=== PATIENT | female | born 1955 | race Caucasian/White ===

== ENCOUNTER 2017-02-09 18:05 | Inpatient (IN) | payer OTHER ==
[~2017-02-09] VITALS: Ht 162.6 cm; Wt 97.7 kg
[~2017-02-09 18:05] MED LIST: BIOT10004 PO; CHOL10008 PO; ENAL10TA PO; ESTR1TAB24 PO; HYDR25TA4 PO; LOVA40TA PO; MULT-1018 PO; OMEP20CA11 PO; UBID300C PO; VIT-10 PO; ZLP5T PO
[2017-02-09 18:17] VITALS: BP 109/75; PULSE 96; RESP 20; O2SAT 100
[2017-02-09] MEDS ORDERED: ATOR20TA PO (18:25)
--- NOTE | 2017-02-09 18:38 | ED.REPORT ---
HPI-Abd Pain F 40 and Over Date of Service February 09, 2017 ED Provider: Dr. Tomer Estrada MD A 61 year old female with history of diverticular hemorrhage s/p bowel resection , small bowel obstruction, type II diabetes mellitus and hypertension presents to the ED with rectal bleeding that began at 1000 this morning. She has been passing dark, maroon stool every 2 hours since onset. She reports st least 4-5 episodes of large blood clots passing. Patient denies any other symptoms at this time. She does not currently see a GI specialist. Nursing Notes Stated Complaint: GI BLEED Chief Complaint: Female Abdominal Pain Nursing Notes Reviewed: Yes Allergies: Coded Allergies: hydromorphone (Verified Allergy, Severe, 03/15/16) heart race and SOB morphine (Verified Allergy, Severe, 03/15/16) "makes me crazy" oxycodone (Verified Adverse Reaction, Severe, night terrors, 03/14/16) Scheduled Atorvastatin (Lipitor) 20 Mg Tablet 20 MG PO DAILY Biotin (Biotin) 1,000 Mcg Tab.chew 1,000 MCG PO DAILY Cholecalciferol (Vitamin D3) (Vitamin D3) 1,000 Unit Tab.chew 1,000 UNIT PO DAILY Enalapril Maleate (Enalapril Maleate) 10 Mg Tablet 10 MG PO DAILY Estradiol (Estradiol) 1 Mg Tablet 1 MG PO DAILY Hydrochlorothiazide (Hydrochlorothiazide) 25 Mg Tablet 25 MG PO DAILY Multivitamin (Multi Vitamin Daily) 1 Each Tablet 1 EACH PO DAILY Omeprazole (Omeprazole) 20 Mg Capsule.dr 20 MG PO BID Ubidecarenone (Co Q-10) 300 Mg Capsule 300 MG PO DAILY Scheduled PRN Zolpidem (Ambien) 5 Mg Tablet 5 MG PO HS PRN PRN For Insomnia General Time Seen by MD: 18:38 Chief Complaint Rectal bleeding Hx Obtained From: Patient Arrived By: Walk-in Sudden in Onset?: Yes Onset Occurred: 5 - 8 hours ago (1000) Symptom Duration: Since onset Progression since Onset: Constant Pertinent Negative: Pt denies other symptoms Status: Negative - ED urine HCG Recent Healthcare: No recent doctor visit, No recent hospitalization Risk Factors )( AAA Risk Stratification Hypertension Risk factors reviewed Past Medical History Past Medical History Hypertension Type II diabetes Diverticulitis Past Surgical History Bowel resection p ventral hernia Abdominal hernia gallbladder Tonsillectomy Hysterectomy Family History noncontributory Smoking History Never Smoker Social History Alcohol Use: Denies alcohol use Drug Use: Denies drug use Other Social History: Good social support, Local resident Ambulatory Status Independent Review of Systems Rectal bleeding Pt denies any other symptoms at this time. GI: Reports: Hematochezia (Maroon BM) Complete sys rev & neg: except as marked. Physical Exam Vital Signs Vital Signs (First) Date Time Temp Pulse Resp B/P Pulse Ox O2 Delivery O2 Flow Rate FiO2 02/09/17 18:17 36.2 96 20 109/75 100 Room Air 02/09/17 22:08 2 Initial VS: Reviewed Head / Eyes: Atraumatic, Normocephalic, PERRL Neck: Supple, Non-tender, Full range of motion Extremities: Vascular intact, Neuro intact, No swelling, No tenderness Skin: Warm, Dry, No cyanosis Neurologic: Alert, Oriented, Nonfocal Psychiatric: Mood/affect normal, Behavior normal, Normal thought content General/Constitutional: Awake, Alert Distress / Hydration: Positive: Distress moderate Respiratory / Chest: Atraumatic, Breath sounds NL, Breath sounds = bilat, No respiratory distress Cardiovascular: Heart rate NL, Regular rhythm, Heart sounds NL Abdomen: Atraumatic, Soft, Non-tender Back: Atraumatic, Inspection NL Rectum / Perineum: Atraumatic RECTUM: Large amount of maroon present Interpretation & Diagnostics Lab Results Interpretation Result Diagram: 02/09/17 2210 02/09/17 1835 Test 02/09/17 18:25 02/09/17 18:35 02/09/17 22:10 Hold Serrano Top Tube Received (Received) White Blood Count 7.4th/mm3 (3.8-10.1) Red Blood Count 4.61mil/mm3 (3.90-5.20) Mean Corpuscular Volume 84.8fL (81-100) Mean Corpuscular Hemoglobin 28.0pg (27.0-35.0) Mean Corpuscular Hemoglobin Concent 33.0% (32.0-37.0) Red Cell Distribution Width 13.5% (12.3-15.4) Platelet Count 299bil/L (150-400) Neutrophils (%) (Auto) 61.6% (40-74) Lymphocytes (%) (Auto) 30.6% (14-46) Monocytes (%) (Auto) 6.0% (4-12) Eosinophils (%) (Auto) 1.6% (0-5) Basophils (%) (Auto) 0.1% (0-3) Prothrombin Time 11.7sec (8.1-12.5) Prothromb Time International Ratio 1.09ratio Sodium Level 134mEq/L (134-144) Potassium Level 3.9mEq/L (3.5-5.2) Chloride Level 94mEq/L (97-108) Carbon Dioxide Level 24mmol/L (18-29) Blood Urea Nitrogen 16mg/dL (8-27) Creatinine 0.60mg/dL (0.57-1.00) Estimat Glomerular Filtration Rate 145mL/min (>59) Glucose Level 136mg/dL (60-99) Calcium Level 9.5mg/dL (8.5-10.1) Magnesium Level 2.0mg/dL (1.6-2.6) Total Bilirubin 0.7mg/dL (0.0-1.2) Aspartate Amino Transf (AST/SGOT) 19U/L (0-50) Alanine Aminotransferase (ALT/SGPT) 21U/L (0-32) Alkaline Phosphatase 59U/L (25-165) Troponin T < 0.010ug/L (0.0-0.011) Total Protein 7.6g/dL (6.4-8.4) Albumin 3.8g/dL (3.4-5.0) Hemoglobin 10.6g/dL (12.0-15.6) Hematocrit 32.9% (35.0-46.0) ECG Interpretation ECG Interpretation: Sinus Rhythm Rate 71 Time: 19:02 Interpreted by: ED physician Re-Eval/Medical Decision Med Decision/Clinical Course 61-year-old female with history of diverticular hemorrhage presents with acute most likely lower gastrointestinal hemorrhage. She has had multiple bloody bowel movements today. She had at least 5 bloody bowel movements in the emergency department. The stool color was maroon however and not bright red blood. She did have a vagal episode where her heart rate dropped to the 30s and should very soft blood pressure. She was resuscitated with fluids and atropine. We had blood products at the bedside. I was in close communication with gastroenterology. Plan for ICU admission for close observation, serial H&H 's, transfusion if needed anticipate colonoscopy. Re-Evaluation/Progress #1: Time of Eval: 19:43 Patient Status: Condition improved Re-Evaluation/Progress Note: Patient is She is informed of her lab results and diagnosis. All of the patient's questions are addressed. She understands and agrees with the treatment plan to admit. Re-Evaluation/Progress #2: Time of Eval: 21:51 Patient Status: Condition worsened Re-Evaluation/Progress Note: Patient has a vagal episode. Symptoms have worsened but she denies any pain. Bradycardiac and hypotensive upon recheck. Atropine administered - Bounding radial pulse. Patient has had 3 more BM since arrival to the ED. Consultation #1: Referral / Consult Name: Rajni Goldsmith MD Consulted With: Surgeon Call Returned at: 19:25 Salvage Cutter: Agrees with eval, Agrees with plan Consultation #2: Referral / Consult Name: Cullen Nix MD Call Returned at: 19:42 Salvage Cutter: Agrees with eval, Agrees with plan Note: GI specialist Consultation #3: Referral / Consult Name: Ct Gordon DO Consulted With: Hospitalist Call Returned at: 21:01 Salvage Cutter: Will see patient, Agrees with eval, Agrees with plan, Accepts admit Note: Recommends CCU 2223: Discuss possible transfer Consultation #4: Referral / Consult Name: Cullen Nix MD Consulted With: Surgeon Call Returned at: 21:54 Salvage Cutter: Will see patient, Agrees with eval, Agrees with plan Counseled Regarding: Diagnosis, Lab results, Need for admission Discharge & Departure Primary Impression: Acute lower GI bleeding Additional Impressions: Hemorrhagic shock Vagal autonomic bradycardia Disposition: ADMITTED TO HOSPITAL Discharge Condition All VS Reviewed: Yes Condition: Stable Referrals: Nigel Lees MD (PCP) Crit Care Except Billable Proc Time Spent: 165-194 minutes Services Performed: Patient management by me, Time spent at bedside, Reviewing test results, Reviewing imaging, Discussing patient care, Documentation in record, Time with fam/surrogate, Other Critical Care Notes: fluids, atropine Scribe Attestation Portions of this note were transcribed by January Kebede. I, Dr. Estrada personally performed the history, physical exam and medical decision-making; I reviewed and confirmed the accuracy of the information in the transcribed note. Signed by: Ramona Cespedes, 02/09/17 2076. copies to: Nigel Lees MD, Todd P DO February 09, 2017 18:38 JANUARY KEBEDE February 09, 2017 18:40
[2017-02-09] MEDS ORDERED: 0.9% Sodium Chloride 1,000 ML IV ONE (18:39)
[2017-02-09] MEDS ORDERED: Pantoprazole Inj 80 MG, Pharmacy To Mix 1 EA in 0.9% Sodium Chloride 80 ML IV ONE ×2 (18:40)
[2017-02-09 18:51] LABS: BASOPHILS % (AUTO) 0.1 % (0-3); EOSINOPHILS % (AUTO) 1.6 % (0-5); Mean Corpuscular Volume 84.8 fL (81-100); NEUTROPHILS % (AUTO) 61.6 % (40-74); Platelet Count 299 bil/L (150-400)
[2017-02-09 19:06] LABS: INR 1.09 ratio
[2017-02-09 19:24] LABS: TROPONIN T < 0.010 ug/L (0.0-0.011)
[2017-02-09 19:44] VITALS: BP 119/62; PULSE 63; RESP 24; O2SAT 100
[2017-02-09 21:00] VITALS: BP_SYST 111; BP_SYST 84; BP_DIAS 39; BP_DIAS 59; PULSE 66; RESP 19; O2SAT 98
[2017-02-09] MEDS ORDERED: Ondansetron 2 mg/mL 2 mL Inj IVPUSH PRN (21:15)
[2017-02-09] MEDS ORDERED: Alum-Mag Hydrox-Simeth 30 mL Suspension PO PRN (21:15)
[2017-02-09] MEDS ORDERED: Polyethylene Glycol (PEG) 17 Gm Powder PO PRN (21:15)
[2017-02-09] MEDS ORDERED: Senna-Docusate 8.6-50 mg Tablet PO PRN (21:15)
[2017-02-09] MEDS ORDERED: PEG/Electrolytes 4,000 mL Solution PO ONE (21:15)
[2017-02-09] MEDS ORDERED: Atropine 1 mg/10 mL (Code) Syringe ONE ×2 (21:49→21:57)
[2017-02-09] MEDS ORDERED: EPINEPHrine 0.1 mg/mL 10 mL Syringe ONE (21:54)
[2017-02-09 22:08] VITALS: BP 112/63; PULSE 93; RESP 24; O2SAT 97
[2017-02-09 23:25] VITALS: BP 94/41; PULSE 86; RESP 18; O2SAT 99
[2017-02-10] VITALS (13 sets, daily range): BP systolic 103–124; BP diastolic 52–69; PULSE 60–86; RESP 14–17; O2SAT 96–100
--- NOTE | 2017-02-10 00:02 | PCM.HPMED ---
Subjective Date of Service February 10, 2017 Primary Provider: Admitting Physician: Ct Gordon DO Primary Care Physician: Nigel Lees MD Attending Physician: Ct Gordon DO Admit Status: From the Emergency Department Chief Complaint: blood in stool History of Present Illness: 61yoF with past medical history of PUD, diverticular disease s/p hemicolectomy for diverticular rupture, DM2, GERD admitted with persistent blood in stool and acute blood loss anemia Patient states that she was in her normal state of health when she began having mild abdominal cramps which felt as thought she needed to pass stool. She went to the bathroom and noticed bright red blood in the toilet bowl. She continued to have BRBPR x3 with passing of blood clots (every 2 hours) and was brought into the ED for further evaluation where she continued to have more hematochezia. While in the ED she also had a bradycardic event associated with drop in blood pressure at which time she was given atropine. In addition to abdominal cramping patient endorses lightheadedness and dizziness primarily with position changes however denies chest pain, chest tightness, dyspnea, changes in urination. 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 Previous history includes PUD as well as prior ruptured diverticulum requiring hemicolectomy. Recent medication changes include increase of meloxicam which has been taking PRN. She currently does not have a GI physician as an outpatient. Dr. Nix was consulted and agreed to see patient following admission 02/10/2017. Review of Systems: Complete review of systems obtained. Positive as per HPI otherwise negative Allergies Coded Allergies: hydromorphone (Verified Allergy, Severe, 03/15/16) heart race and SOB morphine (Verified Allergy, Severe, 03/15/16) "makes me crazy" oxycodone (Verified Adverse Reaction, Severe, night terrors, 03/14/16) Home Medications ASA Acetaminophen Meloxicam Lipitor Omeprazole Enalapril HCTZ Multivitamin Coq10 Vit D Eye vitamins Biotin Estrace PMH 1. Hypertension 2. Hypercholesterolemia 3. GERD 4. Diet controlled diabetes 5. Diverticular disease s/p hemicolectomy 6. Macular degeneration 7. Ventral hernia s/p repair 8. PUD Surgical History Ventral hernia repair in 2013 Cholecystectomy Tonsillectomy Hysterectomy Appendectomy Hemicolectomy 2005 Incarcerated hernia Family History No family history of GI disease, GIB Social History Occupation: Nurse Hx Alcohol Use: No Hx Substance Use: No Hx Tobacco Use: No Smoking Status: Never Smoker Living Arrangement: with Family Exam Vital Signs Vital Sign - Last Date Time Temp Pulse Resp B/P Pulse Ox O2 Delivery O2 Flow Rate FiO2 02/09/17 23:25 86 18 94/41 99 Nasal Cannula 2 02/09/17 18:17 36.2 Intake and Output 02/09/17 02/09/17 02/10/17 Cumulative From/Thru 15:00 23:00 07:00 02/09/17 18:17 - 02/09/17 19:05 Intake Total 1000 ml 1000 ml Balance 1000 ml 1000 ml Intake IV Total 1000 ml 1000 ml Exam General: Alert and oriented x3, no acute distress Eyes: PERRLA, Scleral Anicteric Mouth: Mouth Normal, Mucous Membranes Moist/[place] Neck: Supple, no Thyromegaly, trachea central. Pulmonary: clear to auscultation bilaterally, no rhonchi, wheezes or rales, good inspiratory effort Cardiovascular: Normal S1, Normal S2, No Murmurs/Rubs/Gallops, Regular Rate/ Rhythm, (No JVD, no peripheral edema) Pulses: Radial (present and equal), Dorsalis Pedi (present and equal) GI: Soft, Non-tender, Non-distended, Normoactive bowel tones. Musculoskeletal: no joint edema or erythema Extremities: No edema, no cyanosis, no clubbing. Skin: No rashes. Warm and dry, no erythematous areas Neurological: CN grossly intact Lymphatic: Lymph nodes Cervical and Axillary not palpable. Psych: normal affect Lab and Diagnostics Result Diagram: 02/09/17 2210 02/09/17 1835 Assessment & Plan 61yoF with past medical history of PUD, diverticular disease s/p hemicolectomy for diverticular rupture, DM2, GERD admitted with persistent blood in stool and acute blood loss anemia Acute blood loss anemia, acute, POA, ongoing -secondary to GIB -threshold for transfusion hgb 7 Gastrointestinal bleed, acute, POA, ongoing -likely lower GI bleed however brisk upper GI not ruled out -GI consulted, will see patient in am with plans to complete colonoscopy, recs appreciated -continue to monitor H&H q2x1 then q4hr -NPO, mIVF, pantoprazole bolus and gtt -threshold to transfuse hgb7 Bradycardia, acute, POA -bradycardic event following presentation -given atropine x1 with improvement of HR -continue to monitor of tele -atropine at bedside -repeat EKG PRN HTN, chronic -patient hypotensive following admission -hold home blood pressure medications until clinically stable Diet controlled DM - ISS while inpatient, low correctional - HgA1C pending, added on to admit labs GERD -pantoprazole bolus and gtt as above -continue home PPI when taking PO Hypercholesterolemia -hold home medications while NPO VTE Mechanical Devices: Intermittant Pneumatic CD (heparin / enoxaparin contraindicated in the setting of GI bleed) Resuscitation Status: CPR: Attempt Resuscitation Time spent Patient meeting inpatient status with admission expected to be greater than 2 days given severity of disease. Ct Gordon DO February 10, 2017 00:02
--- NOTE | 2017-02-10 03:13 | NUR ---
CCU admit Admitted patient from ED @ midnight for GIB. Pt arrived via gurney, a/o x 3, denies any pain/discomfort. NPO status. Hgb 9.9 around midnight. Protonix gtt infusing, started golyte prep po, had x1 XL greenish, soft stool, pt updated with plan of care. Mrsa nasal screen sent. Addendum: 02/10/17 at 0653 by RAFAL CORDERO RN Addendum: Stable H/H 10.2/30.7, completed golyte prep, had multiple liquid green stool, urine specimen sent.
[2017-02-10] MEDS: Pantoprazole Inj 80 MG in 0.9% Sodium Chloride 80 ML IV SCH ×3 (04:47→18:03)
[2017-02-10 04:48] LABS: BASOPHILS % (AUTO) 0.4 % (0-3); EOSINOPHILS % (AUTO) 0.5 % (0-5); MONOCYTES % (AUTO) 5.4 % (4-12); Mean Corpuscular Hemoglobin 28.1 pg (27.0-35.0); Mean Corpuscular Volume 84.6 fL (81-100); NEUTROPHILS % (AUTO) 69.6 % (40-74); Platelet Count 230 bil/L (150-400)
[2017-02-10] MEDS ORDERED: EPINEPHrine 0.1 mg/mL 10 mL Syringe ONE (06:06)
[2017-02-10 06:50] LABS: APPEARANCE,URINE CLEAR (CLEAR,HAZY); COLOR,URINE YELLOW (YELLOW); OCCULT BLOOD,URINE NEGATIVE (NEGATIVE); PH,URINE 7.5 (5.0-8.0); UROBILINOGEN,URINE NORMAL (NORMAL)
--- NOTE | 2017-02-10 09:52 | PCM.CHPMED ---
Subjective Date of Service: February 10, 2017 Primary Physician: Admitting Physician: Ct Gordon DO Primary Care Physician: Nigel Lees MD Attending Physician: Ct Gordon DO Chief Complaint: Chief Complaint: Rectal bleeding History of Present Illness: GI consult note 61-year-old female with history of hemicolectomy second diverticular rupture, peptic ulcer disease, type II diabetes, history of multiple bouts of recurrent bloody stool. Patient states that yesterday morning around 10 AM she began having dark and bright red blood per rectum. Patient said this continued over the next 6 hours or so with 3 additional bowel movements. At this time she began feeling a little dizzy and decided to emergency department. In the ED she passed additional bloody stool with clots and had an episode of low blood pressure and bradycardia requiring atropine. Patient denies any additional symptoms including chest pain, shortness of breath, headache, changes in urine or stool(maintaining that there is no diarrhea), abdominal pain or weakness. Patient states that she has the sense of episode every 3 years and in addition to the hemicolectomy in 2005 (where she also had hypotension) she has also had multiple polyps removed with bleeding being attributed to the polyps. Patient does take aspirin and meloxicam and denies any epigastric pain. GI was consult for colonoscopy Review of Systems: See history of present illness PMH Past Medical History 1. Hypertension 2. Hypercholesterolemia 3. GERD 4. Diet controlled diabetes 5. Diverticular disease s/p hemicolectomy 6. Macular degeneration 7. Ventral hernia s/p repair 8. PUD Hx Any Other Health Problems?: YesHx Diabetes: Yes Surgical History Ventral hernia repair in 2012 Cholecystectomy Tonsillectomy Hysterectomy Appendectomy Hemicolectomy 11/2005 Incarcerated hernia Home Medications ASA Acetaminophen Meloxicam Lipitor Omeprazole Enalapril HCTZ Multivitamin Coq10 Vit D Eye vitamins Biotin Estrace Allergies: Coded Allergies: hydromorphone (Verified Allergy, Severe, 03/15/16) heart race and SOB morphine (Verified Allergy, Severe, 03/15/16) "makes me crazy" oxycodone (Verified Adverse Reaction, Severe, night terrors, 03/14/16) Family History Family History No history of cancer Social History Occupation: Nurse Hx Alcohol Use: NoHx Substance Use: NoHx Tobacco Use: No Smoking Status: Never Smoker Living Arrangement: with Family Exam Vital Signs Vital Sign - Last Date Time Temp Pulse Resp B/P Pulse Ox O2 Delivery O2 Flow Rate FiO2 02/10/17 09:24 36.6 65 16 113/55 99 Nasal Cannula 2.00 Intake and Output 02/09/17 02/09/17 02/10/17 Cumulative From/Thru 15:00 23:00 07:00 02/09/17 18:17 - 02/10/17 06:09 Intake Total 1000 ml 3685 ml 4685 ml Output Total 2750 ml 2750 ml Balance 1000 ml 935 ml 1935 ml Intake Oral 3600 ml 3600 ml IV Total 1000 ml 85 ml 1085 ml Output Stool Total 2750 ml 2750 ml # Bowel Movements 3 3 General: Alert, Oriented X3, Cooperative Head: Normal Eyes: PERRLA, EOMI, Scleral Anicteric Mouth: Mucous Membr Moist/[place] Neck: Supple Chest & Lungs: Chest Wall Normal, Clear to auscultation & percussion Cardiovascular: Exam Unremarkable, Regular Rate/Rhythm Abdomen: Non-tender, Non-distended Extremities: No cyanosis/clubbing/edma bilat, Normal bilaterally, No Edema Neurological: Grossly Neurologically Intact Lab and Diagnostics Result Diagram: 02/10/17 0715 02/10/17 0345 Assessment & Plan Assessment Problem list: Acute blood loss anemia secondary to GI bleed Bradycardia Hypotension Diabetes GERD Assessment/plan 61-year-old female with acute onset rectal bleeding with hypotension and dizziness but no additional symptoms. Lab work looks mostly benign except for a variably decreasing hemoglobin level. Patient was kept nothing by mouth and given GoLYTELY last night and has completed the gallon around 6 AM this morning. Patient will go for colonoscopy later today, current time is unknown. Recommend the patient be kept on pantoprazole 40 mg twice a day and agree with primary care on transfusion criteria. Will defer to primary team on bradycardia and hypotension. Also put in for a hemoglobin today at noon to continue to trend patient's H&H. Thank you for allowing us participate in the care of this patient. Problems: VTE Mechanical Devices: Intermittant Pneumatic CD Resuscitation Status: CPR: Attempt Resuscitation Attending Statement Patient seen and examined. Agree with assessment and plan as described by Dr Clark. Derrick Clark DO February 10, 2017 09:52 Cullen Nix MD February 10, 2017 18:49
--- NOTE | 2017-02-10 10:00 | PCM.PNMED ---
Subjective Date of Service February 10, 2017 Subjective Elina Alexis is a 61 year old woman with past medical history of PUD, diverticular disease s/p hemicolectomy for diverticular rupture, DM2, GERD admitted with persistent blood in stool and acute blood loss anemia. Hospital day #2 Overnight: No acute events. Patient was able to complete her bowel prep. Today: The patient states she feels fairly well. She is almost back to her normal self. She denies any further episodes of hematochezia. She denies any fevers, chills, shortness of breath, palpitations or dizziness. The remainder of the review of systems is negative except as noted above. Exam Vital Signs Vital Sign - Last Date Time Temp Pulse Resp B/P Pulse Ox O2 Delivery O2 Flow Rate FiO2 02/10/17 04:00 36.7 86 17 116/62 99 Nasal Cannula 2.00 Intake and Output 02/09/17 02/09/17 02/10/17 Cumulative From/Thru 15:00 23:00 07:00 02/09/17 18:17 - 02/10/17 06:09 Intake Total 1000 ml 3685 ml 4685 ml Output Total 2750 ml 2750 ml Balance 1000 ml 935 ml 1935 ml Intake Oral 3600 ml 3600 ml IV Total 1000 ml 85 ml 1085 ml Output Stool Total 2750 ml 2750 ml # Bowel Movements 3 3 Exam General: Alert and oriented x3, no acute distress Eyes: PERRLA, Scleral Anicteric Mouth: Mouth Normal, Mucous Membranes Moist/[place] Neck: Supple, no Thyromegaly, trachea central. Pulmonary: clear to auscultation bilaterally, no rhonchi, wheezes or rales, good inspiratory effort Cardiovascular: Normal S1, Normal S2, No Murmurs/Rubs/Gallops, Regular Rate/ Rhythm, (No JVD, no peripheral edema) Pulses: Radial (present and equal), Dorsalis Pedi (present and equal) GI: Soft, Non-tender, Non-distended, Normoactive bowel tones. Musculoskeletal: no joint edema or erythema Extremities: Mild bilateral edema that is normal for the patient. Skin: No rashes. Warm and dry, no erythematous areas Neurological: CN grossly intact Lymphatic: Lymph nodes Cervical and Axillary not palpable. Psych: normal affect IVs and Medications Medications Reviewed: Medications were reviewed in detail Lab and Diagnostics Result Diagram: 02/10/17 0715 02/10/17 0345 Microbiology Specimen: [id number] Collected: 02/10/17 Status: COMP Re#: [id number] Received: 02/10/17 Source: NOSE Sp Desc : Subm Dr: Ct Gordon DO Ordered: FANNY MRSA PCR Comments: Collected by Nurse/Unit? Y/N Y Procedure Result Verified Site Microbiology FANNY MRSA PCR Final 02/10/17 MRSA BY PCR NOT DETECTED REFERENCE INTERVAL NOT DETECTED Assessment & Plan Elina Alexis is a 61 year old woman with past medical history of PUD, diverticular disease s/p hemicolectomy for diverticular rupture, DM2, GERD admitted with persistent blood in stool and acute blood loss anemia. Hospital day #2 Acute blood loss anemia, acute, present on admission, ongoing -This is secondary to GI bleed. -H and H stable over the last 3checks -threshold for transfusion hgb 7 -Remainder of plan as below. Gastrointestinal bleed, acute, present on admission, ongoing -This is likely a lower GI bleed. However, brisk upper GI not ruled out. -GI consulted, will see patient with plans to complete colonoscopy, recs appreciated. Patient was able to complete bowel prep. No further episode of hematochezia. -We will continue to monitor H&H Q4H -NPO, NS for maintenance fluids, pantoprazole bolus given, will continue gtt -The threshold to transfuse will be a hgb 7 Bradycardia, acute, present on admission -The patient had a bradycardic event following presentation -Patient was given atropine x1 with improvement of HR, no repeat episodes noted overnight. Possibly due to vasovagal event. -We will continue to monitor on telemetry. -We will have atropine at bedside -We will repeat EKG PRN. -Patient had a stress test about 3 years ago which was normal per her report Chronic issues, known before admission: Hypertension -patient hypotensive following admission. Currently normotensive. -holding home blood pressure medications until clinically stable Diet controlled DM - ISS while inpatient, low correctional - HgA1C pending GERD -pantoprazole bolus and gtt as above -continue home PPI when taking PO Hypercholesterolemia -hold home medications while NPO Dispo: Patient can be downgraded from the CCU today. Anticipate she will be in the hospital for 1-2 more days as she is evaluated and treated for the above conditions. Pain Evaluation: Adequate Pain Control VTE Mechanical Devices: Intermittant Pneumatic CD (heparin / enoxaparin contraindicated in the setting of GI bleed) Resuscitation Status: CPR: Attempt Resuscitation Attending Statement Patient was seen and examined. Case was discussed with Dr. Christianson. Chart was reviewed and agree with the above progress note. Cande Christianson DO February 10, 2017 08:38 Michael Kidd MD February 10, 2017 17:46
[2017-02-10] MEDS: 0.9% Sodium Chloride 1,000 ML IV SCH ×2 (14:43→14:52)
[2017-02-10] MEDS ORDERED: fentaNYL-PF 50 mCg/mL 2 mL Inj IVPUSH PRN (14:45)
--- NOTE | 2017-02-10 14:54 | NUR ---
OFF UNIT Pt off unit to Endo for scope at 1430. Vitals stable, A&Ox3, report given to RN prior to pt being picked up. assistant technician aware.
--- NOTE | 2017-02-10 15:57 | NUR ---
Social Work: Screen D: Per EMR review, pt is a 61 year old female admitted for GI Bleed. Pt is [facility]. PCP is Nigel Lees MD. NOK is Anna Alexis, son. Advanced directives completed and requested by admit RN. No readmit score entered at this time. Pt lives in [place] with family. She is I at baseline and uses no DME. INVENTORY ANALYST anticipates pt will discharge home when medically stable with no further social work needs. A: Pt who is I at baseline. P: Anticipate pt to discharge home via POV once medically stable; INVENTORY ANALYST to continue to follow. RETA Flores
--- NOTE | 2017-02-10 23:43 | ENDO ---
[address] [address] ENDOSCOPY PROCEDURE PATIENT: ANTONIO ROSE : 1955 MR#: [id number] ADMIT: 02/09/2017 JOB ID: [id number] DATE: 02/10/2017 PRIMARY PROVIDER: Nigel Lees MD PROCEDURE: Colonoscopy with hot snare polypectomy. Jessica ink injection. Epinephrine injection. Gold Probe application for hemostasis. Resolution clipped deployment for hemostasis. INDICATIONS: 61-year-old female with hematochezia. BOWEL PREP: Fair. There was some stool debris remaining. SEDATION: 1. 5 mg Versed. 2. 125 mcg fentanyl. PROCEDURE IN DETAIL: After the risks and benefits were explained, written informed consent was obtained. The patient was brought into the endoscopy suite and placed into the left lateral decubitus position. Sedation was achieved using the above-stated medications with the addition of oxygen via nasal cannula. A digital rectal examination was accomplished. Mild to moderate internal external nonbleeding, nonthrombosed hemorrhoids were noted. The scope was introduced into the rectum and advanced to the cecum as identified by the appendiceal orifice and ileocecal valve. The terminal ileum was interrogated. The scope was slowly withdrawn to carefully examine the mucosa for any defects or lesions. The bleeding close focus was identified and treated as below. The scope was then slowly withdrawn to examine the remainder of the mucosa for any other pathology. The colon was decompressed, the scope removed from the patient who tolerated the procedure well. FINDINGS: At the anastomosis which is a side to end anastomosis, looked patent and normal at about 20 cm from the anal verge. No proctitis, no colitis. Initially, there was some very minimal blood debris seen in the sigmoid colon. No active bleeding. The scope we advanced all the way to the cecum, and then on our way back at around 55 cm from the anal verge in the transverse colon, there was an unusual-looking ulcerated polyp that was removed with hot snare. We then drifted the scope back another 5 cm and encountered fresh bleeding. I aggressively suctioned and irrigated and found the source to be a diverticulum with a pulsatile bleeding. We injected with approximately 3 cc of dilute one in 10,000 epinephrine which blanched out the mucosa nicely but did not cause complete hemostasis. I applied a Resolution clip 360 to the area, but this did not deploy effectively enough to create hemostasis. The way that the tick was angled, made clip deployment rather challenging. The bleeding focus was clearly visible and exposed. I applied a few a brief light applications of 7-[place] gold probe for cautery effect and this seemed to slow the flow of bleeding almost entirely. I then ultimately placed one further Resolution clip, approximating the mucosa a little better. Photographs were taken. A small 0.5 cc Jessica ink tattoo was placed just distal to the lesion in case the patient needs to proceed to surgery. Otherwise, there were scattered diverticula throughout the residual left colon. No other bleeding foci identified. ENDOSCOPIC DIAGNOSES: 1. Diverticular bleed, status post epinephrine injection, Gold Probe application and Resolution clip deployment x2. 2. Diverticulosis. 3. Colon polyp. 4. Normal and patent colonic anastomosis. 5. Hemorrhoids. RECOMMENDATIONS: 1. Await histopathology. 2. Clear liquid diet. 3. Continue close observation. If the patient is doing well clinically, diet can be slowly advanced tomorrow.
[2017-02-11] VITALS (10 sets, daily range): BP systolic 104–123; BP diastolic 49–70; PULSE 68–103; RESP 14–18; O2SAT 95–100
--- NOTE | 2017-02-11 02:25 | NUR ---
GI: 0140 pt notified RN of blood stool. 300ml of maroon/ red blood with some scattered clots noted. Dr. Allen notified, MD states alot of blood was left in colon post procedure so bloody stools are not too alarming at this time. Vitals remain stable. ordered received for STAT H/H, and to transfuse 2 units of PRBC for hemoglobin less than 7.5. H/H drawn- awaiting results.
[2017-02-11] MEDS: 0.9% Sodium Chloride 1,000 ML IV SCH (04:29)
[2017-02-11] MEDS: Pantoprazole Inj 80 MG in 0.9% Sodium Chloride 80 ML IV SCH (04:29)
[2017-02-11 05:35] LABS: BASOPHILS % (AUTO) 0.1 % (0-3); EOSINOPHILS % (AUTO) 1.1 % (0-5); Mean Corpuscular Hemoglobin 27.6 pg (27.0-35.0); Platelet Count 239 bil/L (150-400)
[2017-02-11] MEDS: Pantoprazole 4 mg/mL 10 mL Inj IVPUSH SCH ×2 (09:11→16:53)
[2017-02-11] MEDS: 0.9% NaCl + KCl 20 mEq/L 1,000 ML IV SCH ×2 (09:12→21:45)
[2017-02-11] MEDS: Potassium Chloride 20 mEq SR Tablet PO SCH ×2 (09:12→20:39)
--- NOTE | 2017-02-11 10:54 | PCM.PNMED ---
Subjective Date of Service February 11, 2017 Subjective GI progress note Patient one for endoscopy yesterday with identification of a diverticular bleed as treated with epinephrine injection, colonic polyp that was removed, hemorrhoids, diverticulosis. Overnight the patient had additional bloody bowel movements but these tended to be darker blood, although the patient notes that on the tissue the blood is much brighter. Patient denies any dizziness/ lightheadedness, chest pain, shortness breath, abdominal pain, nausea/vomiting. Patient is currently doing well on clear liquids. Exam Vital Signs Vital Sign - Last Date Time Temp Pulse Resp B/P Pulse Ox O2 Delivery O2 Flow Rate FiO2 02/11/17 08:00 36.9 74 18 104/66 98 Room Air 02/10/17 12:30 2.00 Intake and Output 02/10/17 02/10/17 02/11/17 Cumulative From/Thru 15:00 23:00 07:00 02/09/17 18:17 - 02/10/17 20:31 Intake Total 200 ml 305 ml 5190 ml Output Total 1500 ml 4250 ml Balance 200 ml -1195 ml 940 ml Intake Oral 200 ml 3800 ml IV Total 200 ml 105 ml 1390 ml Output Urine Total 150 ml 150 ml Stool Total 2750 ml Urine/Stool Mix 1350 ml 1350 ml # Bowel Movements 3 Exam General: Patient awake and conversive HEENT: Conjunctiva normal Cardio: Regular rate and rhythm Respiratory: CTA bilaterally Abdomen: Nontender, nondistended, obese, positive bowel sounds Extremities: Mild edema Psych: Appropriate mood and affect Neuro: Grossly Intact throughout IVs and Medications Medications Reviewed: Medications were reviewed in detail Lab and Diagnostics Result Diagram: 02/11/1752402/11/17524 Microbiology Specimen: [id number] Collected: 02/10/17 Status: COMP Req#: [id number] Received: 02/10/17 Source: NOSE Sp Desc : Subm Dr: Ct Gordon DO Ordered: FANNY MRSA PCR Comments: Collected by Nurse/Unit? Y/N Y Procedure Result Verified Site Microbiology FANNY MRSA PCR Final 02/10/17-802 MRSA BY PCR NOT DETECTED REFERENCE INTERVAL NOT DETECTED Assessment & Plan Problem list: Acute blood loss anemia Gastrointestinal bleed second to diverticula bleed Colon polyp GERD Plan: -Continue to watch patient in trend H&H; next is at noon today -Continue on clear liquid diet for now: If H&H is stable patient can advance diet as tolerated -Continue PPI -Blood transfusion if less than 7g/dl Thank you for allowing us to participate in the care of this patient VTE Mechanical Devices: Intermittant Pneumatic CD (heparin / enoxaparin contraindicated in the setting of GI bleed) Resuscitation Status: CPR: Attempt Resuscitation Attending Statement Patient seen and examined. Agree with assessment and plan as per Dr Clark. Will continue to monitor. No suggestion of ongoing rebleed. Derrick Clark DO February 11, 2017 10:54 Cullen Nix MD February 11, 2017 16:58
--- NOTE | 2017-02-11 15:26 | PCM.PNMED ---
Subjective Date of Service February 11, 2017 Subjective Elina Alexis is a 61 year old woman with past medical history of PUD, diverticular disease s/p hemicolectomy for diverticular rupture, DM2, GERD admitted with persistent blood in stool and acute blood loss anemia. Hospital day #3 Overnight: Overnight the patient had a recurrent episode of hematochezia. Today: The patient states she is still quite fatigued when stands up. She denies any hematochezia today. She denies any chest pain, shortness of breath, palpitations, abdominal pain, nausea or vomiting. The remainder of the review of systems is negative except as noted above. Exam Vital Signs Vital Sign - Last Date Time Temp Pulse Resp B/P Pulse Ox O2 Delivery O2 Flow Rate FiO2 02/11/17 12:00 36.7 103 18 107/70 98 Room Air 02/10/17 12:30 2.00 Intake and Output 02/10/17 02/10/17 02/11/17 Cumulative From/Thru 15:00 23:00 07:00 02/09/17 18:17 - 02/10/17 20:31 Intake Total 200 ml 305 ml 5190 ml Output Total 1500 ml 4250 ml Balance 200 ml -1195 ml 940 ml Intake Oral 200 ml 3800 ml IV Total 200 ml 105 ml 1390 ml Output Urine Total 150 ml 150 ml Stool Total 2750 ml Urine/Stool Mix 1350 ml 1350 ml # Bowel Movements 3 Exam General: Alert and oriented x3, no acute distress Eyes: PERRLA, Scleral Anicteric Mouth: Mouth Normal, Mucous Membranes Moist/[place] Neck: Supple, no Thyromegaly, trachea central. Pulmonary: clear to auscultation bilaterally, no rhonchi, wheezes or rales, good inspiratory effort Cardiovascular: Normal S1, Normal S2, No Murmurs/Rubs/Gallops, Regular Rate/ Rhythm, (No JVD, no peripheral edema) Pulses: Radial (present and equal), Dorsalis Pedi (present and equal) GI: Soft, Non-tender, Non-distended, Normoactive bowel tones. Musculoskeletal: no joint edema or erythema Extremities: Mild bilateral edema that is normal for the patient. Skin: No rashes. Warm and dry, no erythematous areas Neurological: CN grossly intact Lymphatic: Lymph nodes Cervical and Axillary not palpable. Psych: normal affect IVs and Medications Medications Reviewed: Medications were reviewed in detail Lab and Diagnostics Result Diagram: 02/11/17 1210 02/11/17 0525 Microbiology MRSA screen negative Assessment & Plan Elina Alexis is a 61 year old woman with past medical history of PUD, diverticular disease s/p hemicolectomy for diverticular rupture, DM2, GERD admitted with persistent blood in stool and acute blood loss anemia. Hospital day #3 Acute blood loss anemia, acute, present on admission, ongoing -Secondary to GI bleed. -patient underwent colonoscopy yesterday noting a diverticular bleed -will continue to trend H and H -threshold for transfusion hgb 7 -Remainder of plan as below. Diverticular bleed, acute, present on admission, ongoing -s/p epinephrine and Gold probe application and 2 clip. -GI consulted, appreciate time and expertise -We will continue to monitor H&H Q4H -Clear liquid diet, advance as tolerated per GI -Protonix 80 mg IV BID -The threshold to transfuse will be a hgb 7 Bradycardia, acute, present on admission -The patient had a bradycardic event following presentation -Patient was given atropine x1 with improvement of HR, no repeat episodes noted overnight. Possibly due to vasovagal event. -We will continue to monitor on telemetry. -We will have atropine at bedside -We will repeat EKG PRN. -Patient had a stress test about 3 years ago which was normal per her report Chronic issues, known before admission: Hypertension -patient hypotensive following admission. Currently normotensive. -holding home blood pressure medications until clinically stable Diet controlled DM - ISS while inpatient, low correctional - HgA1C 6.3 GERD -pantoprazole bolus and gtt as above -continue home PPI when taking PO Hypercholesterolemia -Restart home medication Dispo: Anticipate she will be in the hospital for 1-2 more days as she is evaluated and treated for the above conditions. VTE Mechanical Devices: Intermittant Pneumatic CD (heparin / enoxaparin contraindicated in the setting of GI bleed) Resuscitation Status: CPR: Attempt Resuscitation Attending Statement She was seen and examined with Dr. Christianson. Chart was reviewed and agree with the above progress note Cande Christianson DO February 11, 2017 15:06 Michael Kidd MD February 11, 2017 16:29
[2017-02-11] MEDS ORDERED: fentaNYL-PF 50 mCg/mL 2 mL Inj ONE (17:42)
[2017-02-11] MEDS ORDERED: fentaNYL-PF 50 mCg/mL 2 mL Inj IVPUSH PRN (19:15)
[2017-02-12] VITALS (8 sets, daily range): BP systolic 100–133; BP diastolic 50–66; PULSE 71–87; RESP 12–18; O2SAT 96–98
[2017-02-12 04:16] LABS: BASOPHILS % (AUTO) 0.2 % (0-3); EOSINOPHILS % (AUTO) 2.7 % (0-5); MONOCYTES % (AUTO) 8.7 % (4-12); Mean Corpuscular Hemoglobin 27.8 pg (27.0-35.0); Mean Corpuscular Volume 87.5 fL (81-100); NEUTROPHILS % (AUTO) 51.5 % (40-74); Platelet Count 172 bil/L (150-400)
--- NOTE | 2017-02-12 04:31 | NUR ---
Blood Transfusion: 2 units PRBC transfused overnight. Pt tolerated well, no s/s of transfusion reaction. Vitals stable. Pt denies any n/v or abdominal pain. pt had one BM of 200 dark red blood in the beginning of shift. no further BMs reported. H/H this am increased to 8.0/25.2
[2017-02-12 04:36] LABS: Magnesium 1.9 mg/dL (1.6-2.6); Phosphorus 3.5 mg/dL (2.5-4.9)
--- NOTE | 2017-02-12 04:41 | ENDO ---
[address] [address] ENDOSCOPY PROCEDURE PATIENT: ANTONIO ROSE : 1955 MR#: [id number] ADMIT: 02/09/2017 JOB ID: [id number] DATE: 02/11/2017 PROCEDURE: Flexible sigmoidoscopy. INDICATIONS: A 61-year-old female with diverticular bleeding, status post epinephrine injection, Gold Probe application and Endoclip deployment for hemostasis yesterday. She continued to have some maroon stool and hemoglobin dropped to 7.0. We elected to pursue a repeat evaluation to ensure no ongoing bleeding. EQUIPMENT: PCF 180 AL. SEDATION: 1. Versed 2 mg. 2. Fentanyl 75 mcg. COMPLICATIONS: None identified. BOWEL PREPARATION: Suboptimal with a moderate amount of clot and old blood material. For the most part we could irrigate and suction to navigate around all of this. Multiple photographs were taken. PROCEDURE IN DETAIL: After the risks and benefits were explained, written and verbal informed consent was obtained. The patient was brought into the endoscopy suite and placed into the left lateral decubitus position. Sedation was achieved as above. A digital rectal examination accomplished. Mild to moderate internal external nonbleeding, non-thrombosed hemorrhoids were noted. The scope was introduced into the rectum and advanced to the previously treated lesion. The Endoclips appeared to be in excellent position. There was no evidence of any ongoing bleeding. We advanced the scope several centimeters more proximal to this location and evaluated the polypectomy site which also looked clean without any evidence of recent bleeding. At around the polypectomy site, the residual stool on the crane appeared to be a darker color consistent with old blood. In the more distal GI tract, there was evidence of some red blood staining the crane but mostly maroon in color and this overall suggested that bleeding had been recent but was not ongoing. We heavily irrigated the site with the two clips in position. We brushed the area by passing it with the endoscope. None of this induced any recurrent bleeding. I cleaned up some of the residual clot and blood debris. There was a moderate amount of maroon and dark red material still remaining in the colon that will need to be evacuated with subsequent bowel movements. ENDOSCOPIC DIAGNOSES: 1. Hemostasis confirmed. 2. Colorectal anastomosis. 3. Hemorrhoids. 4. Diverticulosis. RECOMMENDATIONS: 1. Full liquid diet. 2. Continue to monitor serial CBC. 3. Consider a blood transfusion. I would leave this to the discretion of the team. 4. I will continue to follow through the weekend.
[2017-02-12] MEDS: 0.9% NaCl + KCl 20 mEq/L 1,000 ML IV SCH (06:50)
[2017-02-12] MEDS: Pantoprazole 4 mg/mL 10 mL Inj IVPUSH SCH ×2 (07:53→16:58)
[2017-02-12] MEDS: Potassium Chloride 20 mEq SR Tablet PO SCH ×2 (07:53→20:24)
--- NOTE | 2017-02-12 09:09 | NUR ---
NUTRITION ASSESSMENT: ASSESS:61 YO female admitted with diverticular bleed, GI bleed, status post epinephrine injection, Gold Probe application and Endoclip deployment for hemostasis yesterday. She continued to have some maroon stool and hemoglobin dropped to 7.0. She was taken for repeat evaluation today to ensure no ongoing bleeding. Endoscopic diagnoses include hemostatis confirmed, colorectal anastomosis, hemorrhoids, diverticulosis. Diet advanced to full liquids yesterday. PMHx:HTN, dyslipidemia, GERD, diet control diabetes, diverticular disease, s/p hemicolectomy, macular degeneration, ventra hernia s/p repair, PUD. DIET:Full liquids x 1 D. PO intake clear liquid diet yesterday 100% x 1 tray. LABS: Reviewed. BUN 6, Cr 0.52, Glu 103, A1c 6.3, Ca 8.1, Alb 2.6. MEDICATIONS: Reviewed. NUTRITION FOCUSED PHYSICAL ASSESSMENT: GI symptoms / stool: 575 mL (02/11).Carl: 20. Skin Integrity: No issues reported. ANTHROPOMETRICS: Current Wt: 99.3 kg BMI: 37.0 kg/m2.Admit weight: 97.73 kg IBW: 54.5 kg (179.2% IBW) ESTIMATED NEEDS (STAGE II OBESITY): Calories: 1364 - 1636 kcal (25 - 30 kcal / kg IBW) Protein: 98 - 109 g protein (1.8 - 2.0 g / kg IBW) Fluid: 2932 mL (approx. 30 mL / kg BW) NUTRITION DIAGNOSIS: 1)Increased nutrient needs related to GI bleed, requiring 2 endoscopic procedures. INTERVENTION: 1) Will add [employer] [facility] [employer] to lunch tray. MONITOR/EVALUATE: Diet advance / tolerance, PO intake, labs, GI/nutrition status. Follow up per moderate nutrition risk guidelines.
--- NOTE | 2017-02-12 12:15 | NUR ---
Asked to evaluate Right AC IV line/site. Per RN it was leaking but has now stopped. Upon discussion with patient, she is currently refusing to have IV restarted, and will keep this AC site.
--- NOTE | 2017-02-12 13:10 | PROG NOTE ---
[address] [address] PROGRESS NOTE PATIENT: ANTONIO ROSE : 1955 MR#: [id number] ADMIT: 02/09/2017 JOB ID: [id number] DATE: 02/12/2017 SUBJECTIVE: The patient had a couple of bowel movements overnight that were dark clot, no more maroon stool. She got 2 units of packed RBCs yesterday. Hemoglobin is up to 8 as of 4:00 this morning. She did not receive the full liquid diet until this morning. OBJECTIVE: Vital signs are stable. The patient is in no distress. Alert, oriented, conversational. LABORATORY DATA: Hemoglobin 8.0, white count 4.9. ASSESSMENT AND PLAN: This is a 61-year-old female with diverticular bleeding, status post endo therapy. Yesterday's followup flexible sigmoidoscopy demonstrated persistent hemostasis. Will see how she does with full liquids today. If blood counts remain acceptably stable and no further signs of hemorrhage, then perhaps diet can be advanced as early as tomorrow morning. I will continue to follow. NOTE: This is a no-charge physician visit. Please do not assess a physician charge for this particular note.
[2017-02-12] MEDS: 0.9% Sodium Chloride 1,000 ML IV SCH (13:48)
--- NOTE | 2017-02-12 16:16 | PCM.PNMED ---
Subjective Date of Service February 12, 2017 Subjective Elina Alexis is a 61 year old woman with past medical history of PUD, diverticular disease s/p hemicolectomy for diverticular rupture, DM2, GERD admitted with persistent blood in stool and acute blood loss anemia. Patient is complaining of passing blood clots. Otherwise she is doing well. Exam Vital Signs Vital Sign - Last Date Time Temp Pulse Resp B/P Pulse Ox O2 Delivery O2 Flow Rate FiO2 02/12/17 16:01 36.7 84 16 117/66 98 Room Air 02/10/17 12:30 2.00 Intake and Output 02/11/17 02/11/17 02/12/17 Cumulative From/Thru 15:00 23:00 07:00 02/09/17 18:17 - 02/12/17 06:06 Intake Total 2122 ml 472 ml 2047 ml 9831 ml Output Total 1100 ml 725 ml 800 ml 6875 ml Balance 1022 ml -253 ml 1247 ml 2956 ml Intake Oral 2122 ml 472 ml 518 ml 6912 ml IV Total 1529 ml 2919 ml Output Urine Total 350 ml 150 ml 800 ml 1450 ml Stool Total 750 ml 575 ml 4075 ml Urine/Stool Mix 1350 ml # Bowel Movements 3 Exam PHYSICAL EXAM: GENERAL: Alert, not in distress, cooperative HEAD: atraumatic, normocephalic, no bruises. EYES: ESTEFANY, EOMI, anicteric, able to fully open and close eyelids SKIN: Skin color normal, turgor normal. No visible rashes or lesions. EAR, NOSE, MOUTH, THROAT: Lips, oral mucosa, tongue gums, oropharynx are moist , pink, no lesions. Ears normal appearance, no lesions. NECK: no jugulovenous distention, no carotid bruits, carotid pulse normal contour, No carotid bruit, supple, no enlarged lymph nodes appreciated; ROM normal. RESPIRATORY: Lungs clear to auscultation. Good diaphragmatic excursion. Normal percussion sound. CARDIAC: normal S1 and S2; no rubs, murmurs, or gallops; regular rate and rhythm ABDOMEN: Abdomen soft, non-tender. BS normal. No masses or organomegaly. MUSCULOSKELETAL: ROM full, muscles are not tender EXTREMITIES: pitting edema in LE, no deformities, clubbing or skin discoloration. NEURO: Alert, oriented X 3, Sensation grossly intact., Cranial nerves II-XII intact, Grossly normal motor function. PULSES: 2+ radial, 2+ posterial tibial, 2+ dorsalis pedis, 2+ carotid REVIEW OF SYSTEMS: GENERAL: +++ malaise, no fevers., SEE HPI HEENT: Negative for frequent or significant headaches, No changes in hearing or vision, no nose bleeds or other nasal problems NECK: Negative for lumps, goiter, pain and significant neck swelling All other reviewed and negative other than HPI. IVs and Medications Medications Reviewed: Medications were reviewed in detail Lab and Diagnostics Result Diagram: 02/12/17 1335 02/12/17 0400 Microbiology MRSA screen negative Assessment & Plan Elina Alexis is a 61 year old woman with past medical history of PUD, diverticular disease s/p hemicolectomy for diverticular rupture, DM2, GERD admitted with persistent blood in stool and acute blood loss anemia. Hospital day #3 Acute blood loss anemia - Stable -Secondary to GI bleed. -patient underwent colonoscopy noting a diverticular bleed -will continue to trend H and H -threshold for transfusion hgb 7 -s/p epinephrine and Gold probe application and 2 clip. -GI consulted, appreciate time and expertise -Clear liquid diet, advance as tolerated per GI Bradycardia, acute, present on admission - Resolved -The patient had a bradycardic event following presentation. Patient was given atropine x1 with improvement of HR, no repeat episodes noted overnight. Possibly due to vasovagal event. -We will continue to monitor -We will repeat EKG PRN. -Patient had a stress test about 3 years ago which was normal per her report Hypertension - Blood pressure is normal Diet controlled DM - Stable - ISS while inpatient, low correctional - HgA1C 6.3 GERD - Stable Hypercholesterolemia - Stable Dispo: Anticipate she will be in the hospital for 1-2 more days as she is evaluated and treated for the above conditions. VTE Mechanical Devices: Intermittant Pneumatic CD (heparin / enoxaparin contraindicated in the setting of GI bleed) Resuscitation Status: CPR: Attempt Resuscitation Nathan Joshi MD February 12, 2017 16:16
--- NOTE | 2017-02-12 19:30 | NUR ---
BMs Pt had several small BMs that were very dark maroon and appeared to be mostly blood clot, Pt then had a loose maroon stool early this afternoon, notified and stat H/H ordered, Pt's H/H returned at 9.3/28.8, Pt instructed to continue to have RN observe BMs and to notify RN if there was an increase in output.
[2017-02-13] VITALS (13 sets, daily range): BP systolic 107–151; BP diastolic 46–76; PULSE 70–83; RESP 12–20; O2SAT 95–99
--- NOTE | 2017-02-13 06:15 | NUR ---
GI: PT denies n/v overnight. No BMs noted. pt tolerated full liquid diet. No AM labs ordered. Dr. Gordon made aware- no orders at this time. Pt c/o 04/11 headache and requesting Tylenol. made aware- order received for 650mg PO Tylenol x1- med given with good effect- pt sleeping.
[2017-02-13] MEDS: Potassium Chloride 20 mEq SR Tablet PO SCH ×2 (07:26→22:24)
[2017-02-13] MEDS: Pantoprazole 4 mg/mL 10 mL Inj IVPUSH SCH ×2 (07:26→16:51)
[2017-02-13 08:27] LABS: Mean Corpuscular Hemoglobin 28.3 pg (27.0-35.0); Mean Corpuscular Volume 88.9 fL (81-100)
--- NOTE | 2017-02-13 12:30 | PCM.PNMED ---
Subjective Date of Service February 13, 2017 Subjective Elina Alexis is a 61 year old woman with past medical history of PUD, diverticular disease s/p hemicolectomy for diverticular rupture, DM2, GERD admitted with persistent blood in stool and acute blood loss anemia. Hospital day #5 Overnight: No acute events. Today: The patient had one more episode of about 400 cc of hematochezia. She denies any chest pain, palpitations or abdominal pain but is feeling frustrated about her lack of progress. If she is not discharged tomorrow she would like to be transferred to [facility] where she had her other surgeries. The remainder of the review of systems is negative except as noted above. Exam Vital Signs Vital Sign - Last Date Time Temp Pulse Resp B/P Pulse Ox O2 Delivery O2 Flow Rate FiO2 02/13/17 09:54 78 02/13/17 07:20 36.7 12 132/58 96 Room Air 02/10/17 12:30 2.00 Intake and Output 02/12/17 02/12/17 02/13/17 Cumulative From/Thru 15:00 23:00 07:00 02/09/17 18:17 - 02/13/17 06:49 Intake Total 1280 ml 918 ml 84359 ml Output Total 1000 ml 1700 ml 9575 ml Balance 280 ml -782 ml 2454 ml Intake Oral 1280 ml 918 ml 9110 ml IV Total 2919 ml Output Urine Total 1000 ml 1700 ml 4150 ml Stool Total 4075 ml Urine/Stool Mix 1350 ml # Voids 4 4 # Bowel Movements 3 Exam General: Alert and oriented x3, no acute distress Eyes: PERRLA, Scleral Anicteric Mouth: Mouth Normal, Mucous Membranes Moist/[place] Neck: Supple, no Thyromegaly, trachea central. Pulmonary: clear to auscultation bilaterally, no rhonchi, wheezes or rales, good inspiratory effort Cardiovascular: Normal S1, Normal S2, No Murmurs/Rubs/Gallops, Regular Rate/ Rhythm, (No JVD, no peripheral edema) Pulses: Radial (present and equal), Dorsalis Pedi (present and equal) GI: Soft, Non-tender, Non-distended, Normoactive bowel tones. Musculoskeletal: no joint edema or erythema Extremities: Mild bilateral edema that is normal for the patient. Skin: No rashes. Warm and dry, no erythematous areas Neurological: CN grossly intact Lymphatic: Lymph nodes Cervical and Axillary not palpable. Psych: normal affect IVs and Medications Medications Reviewed: Medications were reviewed in detail Lab and Diagnostics Result Diagram: 02/13/17 0810 02/12/17 0400 Microbiology MRSA screen negative Assessment & Plan Elina Alexis is a 61 year old woman with past medical history of PUD, diverticular disease s/p hemicolectomy for diverticular rupture, DM2, GERD admitted with persistent blood in stool and acute blood loss anemia. Hospital day #5 Acute blood loss anemia secondary to GI bleed, present on admission, active. - improving -Stable per this morning's labs -s/p epinephrine and Gold probe application and 2 clip. -patient underwent colonoscopy noting a diverticular bleed, repeat scope did note an active source of bleeding. -will continue to trend H and H -threshold for transfusion hgb 7 -GI consulted, appreciate time and expertise -Full liquid diet, advance as tolerated per GI -If patient continues to have bleeding she would like to be transferred to [facility] tomorrow to be evaluated by her surgeon. If she is not deemed ready for discharge tomorrow by the GI team will work on transferring the patient by her request. Bradycardia, acute, present on admission. Resolved -The patient had a bradycardic event following presentation. Patient was given atropine x1 with improvement of HR, no repeat episodes noted overnight. Possibly due to vasovagal event. -We will continue to monitor -We will repeat EKG PRN. -Patient had a stress test about 3 years ago which was normal per her report Hypertension - stable - Blood pressure is normal Diet controlled DM - Stable - ISS while inpatient, low correctional - HgA1C 6.3 GERD - Stable Hypercholesterolemia - Stable Dispo: Anticipate she will be in the hospital for 1-2 more days as she is evaluated and treated for the above conditions. VTE Mechanical Devices: Intermittant Pneumatic CD (heparin / enoxaparin contraindicated in the setting of GI bleed) Resuscitation Status: CPR: Attempt Resuscitation Time spent 35 min Attending Statement Patient was seen and examined by me today. I confirmed pertinent physical exam findings and agree with physical exam as documented. I agree with overall assessment and plan of care as documented. Labs, radiology tests reviewed. Plan of care, medication side effects, home medication, diagnostic procedures and available alternatives were discussed and reviewed with the patient. All questions answered. Patient verbalized understanding, approved and agreed to plan of care. Cande Christianson DO February 13, 2017 12:24 Nathan Joshi MD February 13, 2017 18:55
--- NOTE | 2017-02-13 12:45 | PROG NOTE ---
[address] [address] PROGRESS NOTE PATIENT: ANTONIO ROSE : 1955 MR#: [id number] ADMIT: 02/09/2017 JOB ID: [id number] DATE: 02/13/2017 SUBJECTIVE: Patient's H and H looks appropriately stable. This morning, she had further passage of clot material and had had none overnight. The vital signs remain stable. She is concerned and frustrated that she is continuing to leak. OBJECTIVE: Blood pressure 132/58, pulse 73, breathing 12, temperature 36.7, pulse ox 96% on room air. The patient is conversational, and otherwise in no distress. LABS: Hemoglobin this morning 8.9. ASSESSMENT AND PLAN: A 61-year-old female with diverticular bleeding. By the numbers, she appears to be elevated and stable. A little concerned about the report of 400 cc of clot material again this morning. I think continuation of the full liquid diet for now before advancement would be appropriate with a repeat CBC in the afternoon at around 2:30. If she demonstrates ongoing evidence of bleeding, then repeat flex sig will unfortunately be required.
[2017-02-13] MEDS: 0.9% Sodium Chloride 1,000 ML IV SCH ×2 (14:43→18:24)
[2017-02-13] MEDS ORDERED: Sodium Biphos-Phos 133 mL Enema RECTAL ONE (17:20)
[2017-02-13] MEDS ORDERED: fentaNYL-PF 50 mCg/mL 2 mL Inj ONE (17:50)
[2017-02-13] MEDS ORDERED: fentaNYL-PF 50 mCg/mL 2 mL Inj IVPUSH PRN (18:05)
--- NOTE | 2017-02-13 19:25 | ENDO ---
[address] [address] ENDOSCOPY PROCEDURE PATIENT: ANTONIO ROSE : 1955 MR#: [id number] ADMIT: 02/09/2017 JOB ID: [id number] PROCEDURE: Flexible sigmoidoscopy. INDICATIONS: A 61-year-old female with diverticular bleeding, it has been recurrent today. EQUIPMENT: PCF H 180 AL. SEDATION: 3 mg Versed, 100 mcg fentanyl. COMPLICATIONS: None identified. BOWEL PREPARATION: Fair at best. PROCEDURE INFORMATION: After the risks and benefits were explained, written and verbal informed consent was obtained. The patient was brought into the left lateral decubitus position in her ICU suite. A digital rectal examination was performed and again revealed the presence of internal, external. Nonbleeding, nonthrombosed hemorrhoids. The scope was introduced into the rectum and advanced to the previously placed Endoclips. These appeared to actually be at about 35 cm from the anal verge. We spent quite a bit of time at the site, traversed a little beyond it on several on several occasions. I did not identify the previously removed polyp. After our investigation, the scope was slowly withdrawn to carefully examine the mucosa for any defects or lesions. Retroflexed views were avoided in the rectum and multiple direct views were made through the dentate line. The colon was decompressed. The scope removed from the patient who tolerated the procedure well. FINDINGS: The site at around 35 cm from the anal verge was identified but one of the Endoclips had come off. There was some residual clot material at that site. This was irrigated away. There was no evidence of any ongoing bleeding. There was a very small amount of residual clot material left in the left colon. The remainder of the stool was, in essence, a dark brown color. The clot material was removed for the most part. We spent perhaps somewhere in the neighborhood of about 25 to maybe 30 minutes at the site, investigating it. We unsheathed the 360 resolution clip and just simply explored the possibility of placing another one in this location, but could not get the scope into an optimal position to do so in a safe or appropriate manner. We therefore aborted our efforts on that score. I did not see any evidence of a nonbleeding visible vessel. There was some ulcerated effect from the previously placed Endoclips. The area was manipulated quite extensively with the resolution clip and we did not induce any bleeding whatsoever. We therefore elected to not pursue any further intervention. The previously sloughed Endoclip was identified in the sigmoid and this was grasped with the other resolution clip and removed per rectum. ENDOSCOPIC DIAGNOSES: 1. Confirmed hemostasis at previously treated diverticular bleed. 2. Patent anastomosis. 3. Hemorrhoids. RECOMMENDATIONS: Continue observation. Full liquid diet. Advance as tolerated in the morning.
--- NOTE | 2017-02-13 19:57 | NUR ---
Bloody stool Pt had no stools during NOC shift last night per report, Pt had ~400mL maroon liquid with small clots in the bottom, Pt's VSS, Dr. Nix at bedside assessing Pt, H/H ordered for this afternoon. Pt had 2 subsequent BMs which were maroon, had less clots, and were a more viscous liquid. These two BMs were ~100mL and then ~50mL. Pt's hemoglobin from 8.9 to 8.5, Dr. Nix made aware who instructed to make Pt NPO and give a fleets enema in preparation of another colonoscopy in Pt room at ~1800, colonoscopy being performed at shift change, oncoming NOC RN made aware.
--- NOTE | 2017-02-13 23:24 | NUR ---
Mobility/Stools Pt is OOB independently in the RM without assistance. No voiced concerns. Has not experienced any more bloody stools. Continue to monitor.
[2017-02-14 04:43] VITALS: BP 131/73; PULSE 78; RESP 20; O2SAT 98
[2017-02-14 07:44] LABS: BASOPHILS % (AUTO) 0 % (0-3); EOSINOPHILS % (AUTO) 2.7 % (0-5); MONOCYTES % (AUTO) 4.6 % (4-12); Mean Corpuscular Hemoglobin 28.4 pg (27.0-35.0); Mean Corpuscular Volume 90.1 fL (81-100); NEUTROPHILS % (AUTO) 62.8 % (40-74); Platelet Count 225 bil/L (150-400)
[2017-02-14 07:58] VITALS: BP 129/70; PULSE 68; RESP 16; O2SAT 96
[2017-02-14 08:00] VITALS: PULSE 68
[2017-02-14] MEDS: Pantoprazole 4 mg/mL 10 mL Inj IVPUSH SCH (08:14)
[2017-02-14] MEDS: Potassium Chloride 20 mEq SR Tablet PO SCH (08:14)
[2017-02-14 10:51] VITALS: PULSE 83
--- NOTE | 2017-02-14 11:49 | PCM.PNMED ---
Subjective Date of Service February 14, 2017 Subjective GI progress note 61-year-old female who presented with a diverticular bleed with intervention and confirmed hemostasis 2. Patient states that this morning she continues to do well with no recent bowel movements and no blood per rectum. She is slowly advancing diet with no nausea or complaints. Denies all other review of systems. Hemoglobin has dropped a half point from yesterday afternoon this is being repeated at 11:30 today Exam Vital Signs Vital Sign - Last Date Time Temp Pulse Resp B/P Pulse Ox O2 Delivery O2 Flow Rate FiO2 02/14/17 10:51 83 02/14/17 07:58 36.9 16 129/70 96 Room Air 2.00 Intake and Output 02/13/17 02/13/17 02/14/17 Cumulative From/Thru 15:00 23:00 07:00 02/09/17 18:17 - 02/14/17 06:13 Intake Total 1600 ml 600 ml 99412 ml Output Total 2350 ml 1700 ml 45787 ml Balance -750 ml -1100 ml 604 ml Intake Oral 1000 ml 600 ml 13236 ml IV Total 600 ml 3519 ml Output Urine Total 1800 ml 1500 ml 7450 ml Stool Total 550 ml 200 ml 4825 ml Urine/Stool Mix 1350 ml # Voids 3 7 # Bowel Movements 3 Exam General: Awake and alert Cardio: Regular rate and rhythm Respiratory: CTA bilaterally Abdomen: Nontender, nondistended, positive bowel sounds, Extremities: No edema Psych: Appropriate mood and affect Neuro: Intact grossly IVs and Medications Medications Reviewed: Medications were reviewed in detail Lab and Diagnostics Result Diagram: 02/14/17 0723 02/12/17 0400 Microbiology MRSA screen negative Assessment & Plan 61-year-old female with recurrent GI bleed with hemostasis of diverticular bleed and polypectomy. Patient's course has been unexpected with 2 additional flex sigmoidoscopies to confirm hemostasis of the previous bleed. No other areas of bleeding have been noticed. Patient's hemoglobin this morning is dropped half a point this is being rechecked. Should patient need additional intervention she was to proceed with surgery instead of additional scopes. Patient's diet is being advanced currently and is well-tolerated. Continue to follow her blood counts and try to reduce blood draws as we can. Thank you for allowing us to participate in the care of this patient VTE Mechanical Devices: Intermittant Pneumatic CD (heparin / enoxaparin contraindicated in the setting of GI bleed) Resuscitation Status: CPR: Attempt Resuscitation Attending Statement Patient d/c'd home prior to my ability to personally visit c patient. Derrick Clark DO February 14, 2017 11:48 Cullen Nix MD February 14, 2017 18:37
--- NOTE | 2017-02-14 12:49 | PCM.DIMED ---
Cande Christianson DO 02/14/17 1248: Discharge Instructions Date of Service February 14, 2017 Dates of Hospitalization February 09, 2017 at 23:19 Discharge Diagnosis Discharge Diagnosis Acute blood loss anemia secondary to GI bleed, present on admission, active. Bradycardia, acute, present on admission. Resolved Hypertension Diet controlled DM GERD Hypercholesterolemia Medication Instructions Please continue to hold your blood pressure medications until you are seen by your primary care doctor. You blood pressure right now is normal, but as you recover your blood pressure may increase and may need to restart your blood pressure medications. Avoid anticoagulants. Diet Diabetic Activity Limited until seen by PCP Call your provider Bleeding Patient Instructions If you experience any further episodes of bleeding please seek medical attention immediately. Follow-up plan Please follow up with your PCP in about 1 week. Please follow up with Dr. Nix in about 2 weeks. Follow-up Provider: Nigel Lees MD Provider: Cullen Nix MD Follow-up in: 2 weeks Nathan Joshi MD 02/14/17 1342: Cande Christianson DO February 14, 2017 12:48 Nathan Joshi MD February 14, 2017 13:42
--- NOTE | 2017-02-14 13:30 | NUR ---
Discharge note Patient a/o x 4, denies pain, nausea or sob. Patient taking general diet well. Up indep in room. Voiding per bathroom, no BM. Patient denies any bleeding this shift. IV SL and tele removed intact. Patient given discharge instructions, medication reconciliation, info on diagnosis. No new prescriptions. All questions answered. Patient taken to the car via wheelchair with all belongings and discharged home with family.
--- NOTE | 2017-02-14 13:54 | PCM.DC.MED ---
Discharge Summary Date of Service February 14, 2017 Dates of Hospitalization Date of Hospital Admission February 09, 2017 at 23:19 Date of Discharge: February 14, 2017 Providers: Admitting Physician: Ct Gordon DO Primary Care Physician: Nigel Lees MD Attending Physician: Ct Gordon DO Diagnosis at Time of Discharge Diagnosis at Time of Discharge Acute blood loss anemia secondary to GI bleed Bradycardia, acute, Resolved Hypertension Diet controlled DM GERD Hypercholesterolemia Hospital Course Elina Alexis is a 61 year old woman with past medical history of PUD, diverticular disease s/p hemicolectomy for diverticular rupture, DM2, GERD admitted with persistent blood in stool and acute blood loss anemia. Gastroenterology was consulted. Patient was treated with IVF, nothing by mouth. She underwent 2 colonoscopies. These showed diverticular bleed. During second colonoscopy she was treated with epinephrine, cold probe application and 2 clips. Next day after colonoscopy patient was still passing blood clots. We monitored the patient in the hospital, slowly advanced her diet , monitored H&H. On the day of discharge her H&H was stable and she did not pass any clots. While in the hospital patient had an episode of bradycardia, she was getting up to pain with improvement of her heart rate. Her tachycardia was probably secondary due to vasovagal event. Patient has history of hypertension, diet- controlled diabetes, GERD, hypercholesterolemia. He held her BP medications in the hospital. Patient was advised to hold her blood pressure medications at home for now, monitor her blood pressure, and resume her blood pressure medications once she notices her blood pressure is increasing. After patient improved she was discharged home with recommendation to follow up with her PCP for further management of her medical problems. Patient Condition @ Discharge: good Discharge Disposition: home Discharge Activity: resume regular activity, patient was advised to avoid heavy physical work or exertion Driving: Patient was strongly advised against driving when under influence of alcohol, pain meds or other medication that can cause sedation or decreased reaction. Patient was strongly advised that she must not drink, drive, operative heavy machinery or do anything that requires precise judgement or dexterity within 12 hours of taking the controlled medication that was prescribed to h . Patient was aware that opioids and benzodiasepines are very addictive medications and may cause psychological or physical addiction. Discharge Diet: regular diet, heart healthy, low fat, low salt TIME SPENT IN DISCHARGE ACTIVITY: Face to face activity greater then 30 minutes spent in discharge activity. 1. Discussed with patient re: discharge plan of care/treatment, and follow up care/services. 2. Patient agreed with discharge plan and further plan of care, all questions were answered/addressed, no further questions at the time of discharge. Exam Vital Signs (Last) Date Time Temp Pulse Resp B/P Pulse Ox O2 Delivery O2 Flow Rate FiO2 02/14/17 10:51 83 02/14/17 07:58 36.9 16 129/70 96 Room Air 2.00 Test 02/09/17 18:25 02/09/17 18:35 02/10/17 06:40 02/12/17 04:00 Hold Serrano Top Tube Received (Received) Prothrombin Time 11.7sec (8.1-12.5) Prothromb Time International Ratio 1.09ratio Hemoglobin A1c 6.3% (4.8-5.6) Troponin T < 0.010ug/L (0.0-0.011) Urine Color Yellow (YELLOW) Urine Appearance Clear (CLEAR,HAZY) Urine pH 7.5 (5.0-8.0) Urine Specific Jackson 1.010 (1.003-1.035) Urine Protein Negativemg/dL (NEG,TRACE) Urine Glucose (UA) Negativemg/dL (NEGATIVE) Urine Ketones Negativemg/dL (NEGATIVE) Urine Occult Blood Negative (NEGATIVE) Urine Nitrite Negative (NEGATIVE) Urine Bilirubin Negative (NEGATIVE) Urine Urobilinogen Normalmg/dL (NORMAL) Urine Leukocyte Esterase Negative (NEGATIVE) Urine RBC 0-2/hpf (0-2) Urine WBC 0-5/hpf (0-5) Urine Epithelial Cells Moderate/hpf (NONE-MOD) Urine Crystals None seen (NONE SEEN) Urine Bacteria Few/hpf (NONE-FEW) Urine Hyaline Casts None/lpf (NONE) Urine Granular Casts None seen (NONE SEEN) Urine Waxy Casts None seen (NONE SEEN) Urine Red Blood Cell Casts None seen (NONE SEEN) Urine White Blood Cell Casts None seen (NONE SEEN) Urine Mucus None seen (None Seen) Urine Trichomonas None seen (NONE SEEN) Urine Yeast None (NONE SEEN) Urinalysis Comment None Urine Culture Reflexed Not indicated Sodium Level 139mEq/L (134-144) Potassium Level 3.5mEq/L (3.5-5.2) Chloride Level 105mEq/L (97-108) Carbon Dioxide Level 24mmol/L (18-29) Blood Urea Nitrogen 6mg/dL (8-27) Creatinine 0.52mg/dL (0.57-1.00) Estimat Glomerular Filtration Rate 171mL/min (>59) Glucose Level 103mg/dL (60-99) Calcium Level 8.1mg/dL (8.5-10.1) Phosphorus Level 3.5mg/dL (2.5-4.9) Magnesium Level 1.9mg/dL (1.6-2.6) Total Bilirubin 0.8mg/dL (0.0-1.2) Aspartate Amino Transf (AST/SGOT) 12U/L (0-50) Alanine Aminotransferase (ALT/SGPT) 11U/L (0-32) Alkaline Phosphatase 36U/L (25-165) Total Protein 4.9g/dL (6.4-8.4) Albumin 2.6g/dL (3.4-5.0) Test 02/14/17 07:23 02/14/17 11:55 White Blood Count 5.2th/mm3 (3.8-10.1) Red Blood Count 2.82mil/mm3 (3.90-5.20) Mean Corpuscular Volume 90.1fL (81-100) Mean Corpuscular Hemoglobin 28.4pg (27.0-35.0) Mean Corpuscular Hemoglobin Concent 31.5% (32.0-37.0) Red Cell Distribution Width 14.6% (12.3-15.4) Platelet Count 225bil/L (150-400) Neutrophils (%) (Auto) 62.8% (40-74) Lymphocytes (%) (Auto) 29.7% (14-46) Monocytes (%) (Auto) 4.6% (4-12) Eosinophils (%) (Auto) 2.7% (0-5) Basophils (%) (Auto) 0% (0-3) Hemoglobin 8.4g/dL (12.0-15.6) Hematocrit 26.8% (35.0-46.0) Microbiology Results MRSA screen negative Discharge Medications Discharge Medications Atorvastatin (Lipitor) 20 Mg Tablet 20 MG PO DAILY (Reported) Biotin (Biotin) 1,000 Mcg Tab.chew 1,000 MCG PO DAILY (Reported) Cholecalciferol (Vitamin D3) (Vitamin D3) 1,000 Unit Tab.chew 1,000 UNIT PO DAILY (Reported) Enalapril Maleate (Enalapril Maleate) 10 Mg Tablet 10 MG PO DAILY (Reported) Estradiol (Estradiol) 1 Mg Tablet 1 MG PO DAILY (Reported) Hydrochlorothiazide (Hydrochlorothiazide) 25 Mg Tablet 25 MG PO DAILY (Reported ) Multivitamin (Multi Vitamin Daily) 1 Each Tablet 1 EACH PO DAILY (Reported) Omeprazole (Omeprazole) 20 Mg Capsule.dr 20 MG PO BID (Reported) Ubidecarenone (Co Q-10) 300 Mg Capsule 300 MG PO DAILY (Reported) As needed Zolpidem (Ambien) 5 Mg Tablet 5 MG PO HS PRN PRN For Insomnia (Reported) Additional med instructions Please continue to hold your blood pressure medications until you are seen by your primary care doctor. You blood pressure right now is normal, but as you recover your blood pressure may increase and may need to restart your blood pressure medications. Avoid anticoagulants. Followup Plan Follow-up plan Please follow up with your PCP in about 1 week. Please follow up with Dr. Nix in about 2 weeks. Discharge Diet: Diabetic Discharge Activity: Limited until seen by PCP Patient Instructions If you experience any further episodes of bleeding please seek medical attention immediately. Follow-up Provider: Nigel Lees MD Provider: Cullen Nix MD Follow-up in: 2 weeks Nathan Joshi MD February 14, 2017 13:54
--- NOTE | 2017-02-15 13:06 | PATH ---
SURGICAL PATHOLOGY Attending Physician:Jessee Galeas CASE STATUS: Signed Out PATIENT NAME: ANTONIO ROSE PID: [id number] : 1955 DATE COLLECTED:02/10/2017 00:00 SPECIMEN: Colon, Biopsy CLINICAL HISTORY: 1.TRANSVERSE COLON POLYP X1 FINAL DIAGNOSIS: 1.TRANSVERSE COLON, POLYP, BIOPSY: POLYPOID GRANULATION TISSUE, CONSISTENT WITH INFLAMMATORY PSEUDOPOLYP. Negative for dysplasia and malignancy. ICD10 code K63.5 GROSS DESCRIPTION: The specimen is received in one formalin filled container labeled with the patient's name, sublabeled "transverse colon polyp" and consists of 3 jones-oconnor friable portions of tissue which aggregate to 0.4 x 0.4 x 0.3 CM. The specimen is entirely submitted in one cassette. 02/11/2017 [facility] MICRO DESCRIPTION: See diagnosis. ICD-9 CODES: CPT CODES: 1: 29470 Electronically Signed Out Kisha Gill MD [facility] Pathology [facility] [address], [place] [address] Technical component performed at [facility], [facility] [address], [place], [address]
== END 2017-02-14 13:26 | disposition home or self-care (01) | DRG 330 ==
LOC: SED 18:05 → CCU 23:19 → PCC 02-10 10:11
PROVIDERS: ADMIT Internal Medicine; ATTEND Internal Medicine
PROC: 0W3P8ZZ Control Bleeding in Gastrointestinal Tract, Via Natural or Artificial Opening Endoscopic (ICD-10-PCS; 2017-02-10)
PROC: 3E0K8KZ Introduction of Other Diagnostic Substance into Genitourinary Tract, Via Natural or Artificial Opening Endoscopic (ICD-10-PCS; 2017-02-10)
PROC: 0DBL8ZZ Excision of Transverse Colon, Via Natural or Artificial Opening Endoscopic (ICD-10-PCS; principal; 2017-02-10 17:15)
PROC: 0DQ Gastrointestinal System, Repair (ICD-10-PCS; 2017-02-10 17:15)
PROC: 3E0H8GC Introduction of Other Therapeutic Substance into Lower GI, Via Natural or Artificial Opening Endoscopic (ICD-10-PCS; 2017-02-10 17:15)
PROC: 0DJD8ZZ Inspection of Lower Intestinal Tract, Via Natural or Artificial Opening Endoscopic (ICD-10-PCS; 2017-02-11)
PROC: 30233N1 Transfusion of Nonautologous Red Blood Cells into Peripheral Vein, Percutaneous Approach (ICD-10-PCS; 2017-02-11)
PROC: 30233N1 Transfusion of Nonautologous Red Blood Cells into Peripheral Vein, Percutaneous Approach (ICD-10-PCS; 2017-02-12)
PROC: 0DJD8ZZ Inspection of Lower Intestinal Tract, Via Natural or Artificial Opening Endoscopic (ICD-10-PCS; 2017-02-13)
DX: K57.31 Diverticulosis of large intestine without perforation or abscess with bleeding (principal); D62 Acute posthemorrhagic anemia; R00.1 Bradycardia, unspecified; E11.9 Type 2 diabetes mellitus without complications; I10 Essential (primary) hypertension; E78.00 Pure hypercholesterolemia, unspecified; K21.9 Gastro-esophageal reflux disease without esophagitis; D12.3 Benign neoplasm of transverse colon; I95.89 Other hypotension